=== PATIENT | male | born 1955 | race Caucasian/White ===

== ENCOUNTER 2019-09-21 12:18 | Emergency (ER) | payer MEDICARE, SELFPAY ==
[2019-09-21 12:23] VITALS: BP 104/59; PULSE 102; RESP 18; TEMP 36.4; O2SAT 95; BMI 34.9
--- NOTE | 2019-09-21 12:26 | ED_ITS ---
Entered by Atiya Lima, acting as scribe for Dallin George MD, [facility] [place] HPI - General Adult General: Chief complaint: General Medical Stated complaint: AFIB Time Seen by Provider: 09/21/19 12:26 Source: patient Mode of arrival: ambulatory Limitations: no limitations History of Present Illness: HPI narrative: 64 yo Male presents to ED with complaint of atrial fibrillation. Pt states that he has been feeling car sick, nauseated, and dizzy. Pt states that he feels like his pulse is 3 times faster than it should be. Pt states that his pulse has been in the 70s and 80s. Pt states that he recently got out of [facility] for atrial fibrillation. Pt's states that the patient's episodes have been becoming more frequent and have been lasting longer. Pt states that he has been getting really weak and dizzy. Pt's states that the patient was at [facility] today having dialysis when he started feeling worse. Pt's states that the have an appoin tment to see Dr. Buenrostro at 2:30 today but was sent to the ED for further evaluation prior to the appointment. complaint: Atrial Fibrillation Onset (ago): day(s) Location: chest Radiation: non-radiation Pain Consistency: intermittent Relieving factors: none Exacerbating factors: none Associated symptoms: Reports chest pain, nausea, short of breath and weakness; Deny dyspnea, fevers/chills, headache(s), rash or palpitations Treatments prior to arrival: none Review of Systems General: Reports: 10 or more systems reviewed and unremarkable except in HPI and below Const: Denies: fever, chills or body aches Eyes: Denies: change in vision or blurry vision ENMT: Denies: throat pain, enlarged tonsils, painful swallowing, hoarseness, mouth pain or swelling of lips/tongue Card: Reports: chest pain; Denies: palpitations, irregular heart rhythm, edema or swelling of feet/ankles Resp: Denies: shortness of breath, productive cough or non-productive cough GI: Reports: nausea : Denies: flank pain, painful urination, urinary frequency, urinary urgency or urinary hesitancy Musc: Denies: neck pain, back pain or extremity swelling Skin/Breast: Denies: rash, itching or redness Neuro: Denies: headache, numbness in extremities or weakness in extremities Endo: Denies: excessive urination, excessive thirst or tired all the time PFSH ED PFSH: Medical History Myocardial infarction Peritoneal dialysis catheter in place Renal failure Sleep apnea Statin intolerance Surgical History Hx of cholecystectomy Hx of heart artery stent Family History Mother CAD (coronary artery disease) Diabetes Hypertension Father CAD (coronary artery disease) Sister CAD (coronary artery disease) Diabetes Hypertension Denies family history of Clotting disorder Dementia Hyperlipidemia Psychiatric illness Chronic kidney disease (CKD) Anesthesia complication Bleeding disorder Family history of premature coronary artery disease Lung disease Cancer Stroke Social History Smoking and tobacco status: never smoked Alcohol intake: never Physical Exam Const: COMMON NORMALS: no apparent distress, average body habitus, oriented x3, no limitations, healthy appearing, alert and well nourished HENMT: COMMON NORMALS: normocephalic, head/scalp atraumatic and moist oral mucous membranes HEAD & SCALP: normocephalic and atraumatic Eye: COMMON NORMALS: PERRL, EOMs intact bilaterally, conjunctivae normal and no scleral icterus CONJUNCTIVA: Yes conjunctivae normal PUPIL: Yes PERRL Neck/C-Spine: COMMON NORMALS: full ROM, supple, no meningeal signs, no JVD and no carotid bruits Chest: COMMONS NORMALS: inspection of chest normal and palpation of chest normal Resp: COMMON NORMALS: normal respiratory effort, no retractions, no use of accessory muscles, clear to auscultation bilaterally and percussion normal AUSCULTATION: clear to auscultation bilaterally PERCUSSION: percussion normal Cardio: COMMON NORMALS: no JVD, regular rate, regular rhythm, S1 normal heart sound, S2 normal heart sound, no gallops, no clicks, no murmurs, no rub and peripheral pulses 2+ throughout RATE: regular rate RHYTHM: regular rhythm HEART SOUNDS: S1 normal and S2 normal PERIPHERAL PULSES: pulses 2+ throughout GI: COMMON NORMALS: soft to palpation, non-tender, no hepatosplenomegaly, no masses and no bruits INSPECTION: Yes abdominal distension PALPATION: Yes soft and Yes no hepatosplenomegaly OTHER: Peritoneal dialysis catheter noted : COMMON NORMALS: Yes no CVA tenderness BLADDER/KIDNEY EXAM: Yes no CVA tenderness Back/Pelvis: COMMON NORMALS: no CVA tenderness Extremity: COMMON NORMALS: normal to inspection, full ROM, normal capillary refill and no calf tenderness GENERAL: Yes edema Neuro: COMMON NORMALS: oriented x3 SENSORIUM/ORIENTATION: Yes alert MENINGEAL SIGNS: Yes no meningeal signs Skin: COMMON NORMALS: no rashes or lesions noted, no wounds, skin turgor normal, no jaundice, no petechiae and no mottling GENERAL SKIN EXAM: no rashes or lesions noted and turgor normal Course Reevaluation(s): Reevaluation #1: Discussed his lab and imaging findings with him. Also discussed my review of his charts that was faxed to us from [facility]. Discussed that his proBNP numbers have essentially doubled at least and the patient and his states that he has been eating a lot of junk food as was instructed because he had been low on energy and not eating much. They believe this may be responsible for his worsening CHF. He has also been missing sessions of dialysis because after discharge from the hospital he has been tired and sleeping when he should be getting his dialysis. I offered him inpatient admission but he declined and wants to go home. I will therefore discharge him home. Time: 17:30 Vital Signs: Vital signs: Vital Signs Temperature 97.6 F 09/21/19 12:23 Pulse Rate 78 09/21/19 17:50 Respiratory Rate 17 09/21/19 17:50 Blood Pressure 132/78 09/21/19 17:50 Pulse Oximetry 97 09/21/19 17:50 MDM - General Adult MDM Narrative: Medical decision making narrative: 64-year-old patient with a history of congestive heart failure, end-stage renal disease on peritoneal dialysis, coronary artery disease who presented to the emergency department today with nonspecific complaints of feeling unwell, weakness, dizziness. He states that he was recently admitted and discharged at [facility] in [place] for similar symptoms. Evaluation here in the emergency department showed worsening heart failure, markedly elevated troponins, markedly elevated creatinine, and mild anemia. The patient has missed several sessions of dialysis because he has been feeling weak and tired following his hospital admission, he has also been eating a lot of junk food which he was advised to do apparently as he had not been eating well. They feel his increased salt intake may have contributed to the congestive heart failure. The patient did not desire to be admitted to the hospital for further work-up and wanted to be discharged home. He is therefore discharged home with no new orders. Lab Data: Labs: Lab Results 09/21/19 09/21/19 09/21/19 Range/Units 12:45 12:45 12:45 WBC 7.8 (4.0-10.0) 10^3/ uL RBC 2.77 L (4.1-5.3) 10^6/u L Hgb 9.9 L (11.7-16.6) g/dL Hct 31.6 L (42.0-52.0) % MCV 114.1 H (80-94) fL MCH 35.7 H (28.0-34.0) pg MCHC 31.3 (30.0-36.0) g/dL RDW 15.4 H (12.1-15.1) % Plt Count 117 L (130-400) 10^3/c mm MPV 13.0 H (7.4-10.4) fL Neut % (Auto) 82.8 % Lymph % (Auto) 7.6 % [place] % (Auto) 7.2 % Eos % (Auto) 1.3 % Baso % (Auto) 0.5 % Neut # (Auto) 6.4 (1.8-7.7) 10^3/u L Lymph # (Auto) 0.6 L (0.8-4.8) 10^3/u L [place] # (Auto) 0.6 (0.2-0.9) 10^3/u L Eos # (Auto) 0.1 (0.0-0.8) 10^3/u L Baso # (Auto) 0.0 (0.0-0.1) 10^3/u L Nucleated RBC % (a uto) 1.0 % Nucleated RBCs # 0.1 /100WBC Sodium 141 (136-145) mmol/L Potassium 3.7 (3.5-5.1) mmol/L Chloride 95 L (98-107) mmol/L Carbon Dioxide 26 (22-29) mmol/L Anion Gap 23.7 H (5-19) BUN 78 H (8-23) mg/dL Creatinine 13.9 H* (0.7-1.2) mg/dL GFR Calculation 3.6 L (90-130) mL/min Glucose 107 (65-115) mg/dL Calculated Osmolal ity 292 (285-295) mOsm/k g Calcium 8.6 (8.5-10.5) mg/dL Total Bilirubin 1.3 H (0.15-1.2) mg/dL AST 39 (0-40) U/L ALT 41 (0-41) U/L Alkaline Phosphata se 54 (40-130) IU/L Troponin T Baselin e 598 H* (0-15) ng/mL Troponin T 120 Min [place] (0-15) ng/mL [place] Troponin T (0-10) ABS# NT-Pro-B Natriuret Pep > 47239 H (0-125) pg/mL Total Protein 6.6 (6.6-8.7) g/dL Albumin 3.5 (3.5-5.2) g/dL Globulin 3.1 (1.3-4.6) g/dL Lipase 82 H (13-60) U/L TSH 3.39 (0.27-4.20) uIU/ mL 09/21/19 Range/Units 14:38 WBC (4.0-10.0) 10^3/ uL RBC (4.1-5.3) 10^6/u L Hgb (11.7-16.6) g/dL Hct (42.0-52.0) % MCV (80-94) fL MCH (28.0-34.0) pg MCHC (30.0-36.0) g/dL RDW (12.1-15.1) % Plt Count (130-400) 10^3/c mm MPV (7.4-10.4) fL Neut % (Auto) % Lymph % (Auto) % [place] % (Auto) % Eos % (Auto) % Baso % (Auto) % Neut # (Auto) (1.8-7.7) 10^3/u L Lymph # (Auto) (0.8-4.8) 10^3/u L [place] # (Auto) (0.2-0.9) 10^3/u L Eos # (Auto) (0.0-0.8) 10^3/u L Baso # (Auto) (0.0-0.1) 10^3/u L Nucleated RBC % (a uto) % Nucleated RBCs # /100WBC Sodium (136-145) mmol/L Potassium (3.5-5.1) mmol/L Chloride (98-107) mmol/L Carbon Dioxide (22-29) mmol/L Anion Gap (5-19) BUN (8-23) mg/dL Creatinine (0.7-1.2) mg/dL GFR Calculation (90-130) mL/min Glucose (65-115) mg/dL Calculated Osmolal ity (285-295) mOsm/k g Calcium (8.5-10.5) mg/dL Total Bilirubin (0.15-1.2) mg/dL AST (0-40) U/L ALT (0-41) U/L Alkaline Phosphata se (40-130) IU/L Troponin T Baselin e (0-15) ng/mL Troponin T [address] [place] 567.4 H (0-15) ng/mL [place] Troponin T -30.6 L (0-10) ABS# NT-Pro-B Natriuret Pep (0-125) pg/mL Total Protein (6.6-8.7) g/dL Albumin (3.5-5.2) g/dL Globulin (1.3-4.6) g/dL Lipase (13-60) U/L TSH (0.27-4.20) uIU/ mL Imaging Data^: CXR: Radiologist's impression: [address] [address] XRay Report Signed Patient: Bert Feldman #: [id number] : 5Acct#:[id number] Age/Sex: 64 / MADM Date: 09/21/19 Loc: ERRoom/Bed: Attending Dr: Ordering Provider/Ordering MD: Dallin George MD, [facility] [place] Date of Service: 09/21/19 Procedure(s): XR chest 1V portable [id number] Accession Number(s): [id number] Report Number: [id number] WS: [id number] XR chest 1V portable [id number] REASON FOR EXAM: SOB FINDINGS: Cardiomegaly. Line the lung [place] are well aerated. No pneumonia, pleural effusion, pulmonary edema, pneumothorax, or mass effect. The hilum is and apices are normal. No osseous abnormalities. XR/XR chest 1V portable [id number] IMPRESSION: Cardiomegaly Dictated By:Hiren Bryson DO Signed By:Hiren Bryson DOSigned Date/Time:09/21/191310 DD/ 10 EKG Data^: EKG 1: Attestation: I personally reviewed and interpreted this EKG as follows: EKG interpretation date: 09/21/19 EKG interpretation time: 12:25 Prior EKG tracings: not available for review Interpretation: atrial fibrillation, HR 91 BPM Q wave in I, II, III, aVF Computer generated interpretation: Chest X-Ray 09/21/19 12:45 IMPRESSION: Cardiomegaly EKG 2: Attestation: I personally reviewed and interpreted this EKG as follows: EKG interpretation date: 09/21/19 EKG interpretation time: 16:04 Prior EKG tracings: available for review Interpretation: unchanged from earlier today Computer generated interpretation: Chest X-Ray 09/21/19 12:45 IMPRESSION: Cardiomegaly Discharge Plan Discharge Patient Disposition: Home, Self-Care Clinical Impression: End stage chronic kidney disease Diastolic congestive heart failure Qualifiers: Heart failure chronicity: chronic Qualified Code(s): I50.32 - Chronic diastolic (congestive) heart failure Condition: Stable Prescriptions: Continued aspirin 81 mg tablet,delayed release (DR/EC) 81 mg PO DAILY RF: 0 All Day Allergy (cetirizine) 10 mg capsule 10 mg PO DAILY RF: 0 Breo Ellipta 100-25 mcg/dose blister with device 1 inh INHALATION DAILY RF: 0 carvedilol phosphate [Coreg CR] 80 mg capsule, ER multiphase 24 hr 80 mg PO DAILY RF: 0 isosorbide mononitrate 30 mg tablet extended release 24 hr 30 mg PO DAILY RF: 0 fenofibrate 160 mg tablet 160 mg PO DAILY RF: 0 allopurinol 300 mg tablet 300 mg PO DAILY RF: 0 furosemide 80 mg tablet 80 mg PO DAILY RF: 0 duloxetine 60 mg capsule,delayed release(DR/EC) 60 mg PO DAILY RF: 0 finasteride [Proscar] 5 mg tablet 5 mg PO DAILY RF: 0 tamsulosin [Flomax] 0.4 mg capsule 0.4 mg PO DAILY RF: 0 montelukast [Singulair] 10 mg tablet 10 mg PO DAILY RF: 0 temazepam [Restoril] 15 mg capsule 15 mg PO BEDTIME RF: 0 famotidine [Pepcid] 20 mg tablet 20 mg PO BID RF: 0 sevelamer carbonate [Renvela] 800 mg tablet 800 mg PO QID RF: 0 Zofran 8 mg Tablet 8 mg PO Q6H PRN (Reason: Nausea) RF: 0 pentoxifylline 400 mg Tablet Extended Release 400 mg PO TID RF: 0 folic acid 1 mg Tablet 1 mg PO DAILY RF: 0 Liquacel 16-90 gram-kcal/30 mL Liquid 30 ea PO DAILY RF: 0 Discharge Orders: Discharge Order (Routine); Ordered 09/21/19 Ordered By: Dallin George Referrals: Joe Cheng MD [Primary Care Provider] - 1-3 days Patient Instructions: Heart Failure (ED), Peritoneal Dialysis Activity Restrictions/Additional Instructions: Return for any new or worsening symptoms. Continue current management. It is important for you to perform your peritoneal dialysis as scheduled. Follow-up with your regular provider within 3 days. 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
[2019-09-21 12:31] VITALS: BP 104/59; PULSE 83; RESP 17; O2SAT 100
[2019-09-21 12:33] VITALS: RESP 16
--- NOTE | 2019-09-21 12:45 | XR_ITS ---
WS: [id number] XR chest 1V portable [id number] REASON FOR EXAM: SOB FINDINGS: Cardiomegaly. Line the lung [place] are well aerated. No pneumonia, pleural effusion, pulmon alexx edema, pneumothorax, or mass effect. The hilum is and apices are normal. No osseous abnormalities. XR/XR chest 1V portable [id number] IMPRESSION: Cardiomegaly
--- NOTE | 2019-09-21 12:46 | ECG_ITS ---
Measurements Intervals [place] Rate: 91 P: [place]: 0 QRS: 56 QRSD: 117 T: 107 QT: 367 QTc: 454 ATRIAL FIBRILLATION PROBABLE INFERIOR MYOCARDIAL INFARCTION [35 ms Q WAVE IN II/aVF], PROBABLY OLD ANTEROLATERAL MYOCARDIAL INFARCTION [40+ ms Q WAVE IN I/aVL/V3-V6] Compared to ECG 03/20/2018 16:46:45 Atrial flutter no longer present Myocardial infarct finding still present Electronically Signed On 09-21-2019 17:23:14 CDT by Kike Buenrostro M.D. [email or web address] min
[2019-09-21 13:02] LABS: Basophils % 0.5 %; Eosinophils # 0.1 10^3/uL (0.0-0.8); Eosinophils % 1.3 %; Hematocrit 31.6 % (42.0-52.0); Hemoglobin 9.9 g/dL (11.7-16.6); Lymphocytes # 0.6 10^3/uL (0.8-4.8); Lymphocytes % 7.6 %; Mean Corpuscular HGB Conc 31.3 g/dL (30.0-36.0); Mean Corpuscular Hemoglobin 35.7 pg (28.0-34.0); Mean Corpuscular Volume 114.1 fL (80-94); Monocytes # 0.6 10^3/uL (0.2-0.9); Monocytes % 7.2 %; Neutrophils # 6.4 10^3/uL (1.8-7.7); Neutrophils % 82.8 %; Nucleated Red Blood Cells # 0.1 /100WBC; Platelet Count 117 10^3/cmm (130-400); Red Blood Count 2.77 10^6/uL (4.1-5.3); Red Cell Distribution Width 15.4 % (12.1-15.1); White Blood Count 7.8 10^3/uL (4.0-10.0)
[2019-09-21 13:29] LABS: Alanine Aminotransferase 41 U/L (0-41); Albumin Level 3.5 g/dL (3.5-5.2); Alkaline Phosphatase 54 IU/L (40-130); Anion Gap 23.7 (5-19); Aspartate Amino Transferase 39 U/L (0-40); Blood Urea Nitrogen 78 mg/dL (8-23); Calcium 8.6 mg/dL (8.5-10.5); Carbon Dioxide 26 mmol/L (22-29); Chloride 95 mmol/L (98-107); Globulin 3.1 g/dL (1.3-4.6); Glomerular Filtration Rate 3.6 mL/min (90-130); Glucose 107 mg/dL (65-115); Lipase 82 U/L (13-60); Osmolality Calculated 292 mOsm/kg (285-295); Potassium 3.7 mmol/L (3.5-5.1); Sodium 141 mmol/L (136-145); Thyroid Stimulating Hormone 3.39 uIU/mL (0.27-4.20); Total Bilirubin 1.3 mg/dL (0.15-1.2); Total Protein 6.6 g/dL (6.6-8.7)
[2019-09-21 13:59] LABS: NT Pro B Type Natriuretic Pept > 70000 pg/mL (0-125)
[2019-09-21 14:01] LABS: Troponin(5th) Baseline 598 ng/mL (0-15)
--- NOTE | 2019-09-21 14:46 | ECG_ITS ---
Measurements Intervals [place] Rate: 88 P: [place]: 0 QRS: 69 QRSD: 120 T: 94 QT: 365 QTc: 444 ATRIAL FIBRILLATION WITH ABERRANT CONDUCTION OR VENTRICULAR PREMATURE COMPLEXES PROBABLE INFERIOR MYOCARDIAL INFARCTION , PROBABLY OLD [35 ms Q WAVE IN II/aVF] ANTEROLATERAL MYOCARDIAL INFARCTION , PROBABLY RECENT [40+ ms Q WAVE IN I/aVL/V3- V6] Compared to ECG 03/20/2018 16:46:45 Ventricular premature complex(es) now present Aberrant conduction of supraventricular beat(s) now present Myocardial infarct finding still present Electronically Signed On 09-21-2019 17:26:34 CDT by Kike Buenrostro M.D. [id number]
[2019-09-21 14:59] LABS: Troponin 5 2HR 567.4 ng/mL (0-15); Troponin 5 2HR Delta -30.6 ABS# (0-10)
[2019-09-21 16:45] VITALS: BP 121/78; PULSE 77; RESP 16; O2SAT 94
[2019-09-21 17:50] VITALS: BP 132/78; PULSE 78; RESP 17; O2SAT 97
== END 2019-09-21 17:51 | disposition home or self-care (01) ==
PROVIDERS: Emergency Provider Family Medicine; Family Provider Family Medicine; PCP Family Medicine
DX: I13.0 Hypertensive heart and chronic kidney disease with heart failure and stage 1 through stage 4 chronic kidney disease, or unspecified chronic kidney disease (principal); I50.32 Chronic diastolic (congestive) heart failure; N18.6 End stage renal disease; I25.10 Atherosclerotic heart disease of native coronary artery without angina pectoris; I25.2 Old myocardial infarction; Z99.2 Dependence on renal dialysis; Z82.49 Family history of ischemic heart disease and other diseases of the circulatory system
CPT/HCPCS: 12345; 36415; 71045; 80053; 83690; 83880; 84443; 84484; 85025; 93005; 99283